=== PATIENT | male | born 2005 | race African-American/Black ===

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

== ENCOUNTER 2024-06-02 17:54 | Emergency (ER) | payer MEDICAID, OTHER ==
[~2024-06-02] VITALS: Ht 188 cm; Wt 63.5 kg
[2024-06-02 18:11] VITALS: O2SAT 99
[2024-06-02 18:22] VITALS: BP 136/77; PULSE 87; RESP 18; TEMP 36.7; O2SAT 100
[2024-06-02] MEDS ORDERED: FAMO-135 MT (19:28)
[2024-06-02] MEDS ORDERED: ONDA-241 MT (19:28)
[2024-06-02] MEDS ORDERED: CIPR500S3 MT (19:28)
== END 2024-06-02 20:09 | disposition home or self-care (01) ==
LOC: ER 17:54
DX: A05.9 Bacterial foodborne intoxication, unspecified (principal)
CPT/HCPCS: 99283